=== PATIENT | male | born 1975 | race Hispanic/Latino ===

== ENCOUNTER 2022-08-01 07:22 | Observation (INO) | payer BC, OTHER ==
[~2022-08-01] VITALS: Ht 165.1 cm; Wt 78.5 kg
[~2022-08-01 07:22] MED LIST: CELECOXIB 200 MG CAP ONE; DEXAMETHASONE SOD PHOS 10 MG/1 ML VIAL ONE; FARXIGA10 MG PO; GABAPENTIN 300 MG CAP ONE; JANUVIA100 MG PO; LEVOTHYROXINE50 MCG PO; LISINOPRIL10 MG PO; LOSARTAN POTASS25 MG PO; NOVOLOG MI100 UNIT/1 SC; PROPRANOLOL HCL10 MG PO; SIMVASTATIN20 MG PO; SPIRONOLACTONE25 MG PO
[2022-08-01] MEDS ORDERED: ROPIVACAINE 246.25 MG, EPINEPHRINE HCL 1:1000 1ML 0.5 MG, CLONIDINE HCL 0.08 MG, KETORO... INJ ONE ×5 (07:30)
[2022-08-01] MEDS ORDERED: SUGAMMADEX SODIUM 200 MG/2 ML VIAL IV ONE (07:37)
[2022-08-01] MEDS ORDERED: ACETAMINOPHEN 1000 MG/100 ML 0 ML IV ONE (07:37)
[2022-08-01] MEDS ORDERED: Vancomycin IV 1,000 MG ONE (07:40)
[2022-08-01] MEDS ORDERED: SODIUM CHLORIDE 0.9% 500ML 500 ML ONE (07:40)
[2022-08-01] MEDS ORDERED: TRANEXAMIC ACID 20 ML ONE (07:40)
[2022-08-01] MEDS ORDERED: HYDROMORPHONE 1MG/1ML INJ ONE (08:16)
[2022-08-01] MEDS ORDERED: MORPHINE SULFATE/PF 1 MG/1 ML 10ML VIAL ONE (08:36)
[2022-08-01] MEDS ORDERED: EPHEDRINE SULFATE INJ 50 MG/ML VIAL ONE ×2 (10:02→14:27)
[2022-08-01] MEDS ORDERED: ZOLPIDEM TARTRATE 5 MG TAB PO PRN (10:30)
[2022-08-01] MEDS ORDERED: DOCUSATE SODIUM 100 MG CAP PO PRN (10:30)
[2022-08-01] MEDS ORDERED: ONDANSETRON HCL INJ 2MG/ML 2ML 2 MG/ML VIAL IV PRN (10:30)
[2022-08-01] MEDS ORDERED: DIPHENHYDRAMINE HCL INJ 50 MG/ML VIAL IV PRN (10:30)
[2022-08-01] MEDS ORDERED: HYDROCODONE/APAP 7.5MG-325MG 1 EA TAB PO PRN (10:30)
[2022-08-01] MEDS ORDERED: HYDROCODONE/APAP 5MG-325MG TAB PO PRN (10:30)
[2022-08-01 12:30] VITALS: BP 101/73
[2022-08-01] MEDS: SODIUM CHLORIDE 0.9% 1000ML 1,000 ML IV SCH ×2 (12:48→12:53)
[2022-08-01] MEDS ORDERED: LIDOCAINE HCL 2% LOCAL INJ 5 ML SDV VIAL INJ ONE (14:27)
[2022-08-01] MEDS ORDERED: ONDANSETRON HCL INJ 2MG/ML 2ML 2 MG/ML VIAL ONE (14:27)
[2022-08-01] MEDS ORDERED: PROPOFOL IV EMULSION 10 MG/ML 20 ML VIAL ONE (14:27)
[2022-08-01] MEDS ORDERED: GLYCOPYRROLATE INJ 0.2 MG/ML VIAL ONE (14:27)
[2022-08-01] MEDS ORDERED: POVIDONE IODINE 0.05% 0.05 % ML PO ONE (14:27)
[2022-08-01 16:06] VITALS: BP 97/63
[2022-08-01] MEDS: ASPIRIN 325 MG TAB PO SCH (17:05)
[2022-08-01] MEDS: CELECOXIB 100 MG CAP PO SCH (17:05)
[2022-08-01] MEDS ORDERED: ASPIRIN81 MG PO (18:21)
[2022-08-01 20:00] VITALS: BP 98/67
[2022-08-01] MEDS ORDERED: DEXTROSE 50% SYRINGE 50 ML IV PRN (20:15)
[2022-08-01 21:00] VITALS: BP 97/63
[2022-08-01] MEDS: INSULIN LISPRO 100 UNIT/1 ML 3ML VIAL SQ SCH (21:41)
[2022-08-02] VITALS: BP 99/74
[2022-08-02 04:00] VITALS: BP 92/52
[2022-08-02 05:19] LABS: HEMATOCRIT 32.1 % (38.2-49.6); HEMOGLOBIN 11.5 g/dL (14.0-18.0)
[2022-08-02] MEDS: SODIUM CHLORIDE 0.9% 1000ML 1,000 ML IV SCH (06:58)
[2022-08-02] MEDS: INSULIN LISPRO 100 UNIT/1 ML 3ML VIAL SQ SCH ×2 (07:30→11:30)
[2022-08-02 08:14] VITALS: BP 99/66
[2022-08-02] MEDS: ASPIRIN 325 MG TAB PO SCH (08:45)
[2022-08-02] MEDS: CELECOXIB 100 MG CAP PO SCH (08:45)
[2022-08-02] MEDS ORDERED: SITAGLIPTIN 100 MG TAB PO SCH (09:00)
[2022-08-02] MEDS ORDERED: LEVOTHYROXINE SODIUM 50 MCG TAB PO SCH (09:00)
[2022-08-02] MEDS ORDERED: ACETAMINOPHEN 1000 MG/100 ML IV PRN (10:30)
[2022-08-02] MEDS ORDERED: ONDANSETRON HCL 4 MG ORAL DISINTEGRATING TAB PO PRN (12:30)
[2022-08-02 12:34] VITALS: BP 107/74
== END 2022-08-02 13:31 | disposition home or self-care (01) ==
LOC: OR 07:22 → PACU V 10:19 → MED/SURG 12:18
PROVIDERS: ADMIT Specialist; ATTEND Specialist
DX: S72.002K Fracture of unspecified part of neck of left femur, subsequent encounter for closed fracture with nonunion (principal); T84.195A Other mechanical complication of internal fixation device of left femur, initial encounter; K74.60 Unspecified cirrhosis of liver; E11.9 Type 2 diabetes mellitus without complications; Z01.810 Encounter for preprocedural cardiovascular examination; Z01.812 Encounter for preprocedural laboratory examination; Z20.822 Contact with and (suspected) exposure to COVID-19; I10 Essential (primary) hypertension; E03.9 Hypothyroidism, unspecified; Z82.49 Family history of ischemic heart disease and other diseases of the circulatory system; D64.9 Anemia, unspecified
CPT/HCPCS: 0223U; 27132; 36415 ×3; 72170; 82948 ×2; 85014; 85018; 85730; 86850; 86900; 86920; 87071; 87075; 87205; 93005; 94799; 97110 ×2; 97161; 97530 ×2; C1713 ×3; C1776 ×2; G0378 ×2; J0171; J0690 ×2; J1100; J1170; J1885; J2001; J2405; J2704; J2795; J3370; J7030; J7040